=== PATIENT | female | born 1995 | race American Indian/Alaskan Native ===

== ENCOUNTER 2018-02-01 20:13 | Emergency (ER) | payer BC ==
[2018-02-01 21:10] VITALS: BP 101/52
== END 2018-02-01 21:13 | disposition left against medical advice (07) ==
LOC: ED 20:13
DX: R11.2 Nausea with vomiting, unspecified (principal); G43.909 Migraine, unspecified, not intractable, without status migrainosus; F12.90 Cannabis use, unspecified, uncomplicated; Z53.21 Procedure and treatment not carried out due to patient leaving prior to being seen by health care provider